=== PATIENT | male | born 1985 | race Caucasian/White ===

== ENCOUNTER 2020-11-13 05:25 | Emergency (ER) | payer SELFPAY ==
[~2020-11-13] VITALS: Ht 193 cm; Wt 90.7 kg
--- NOTE | 2020-11-13 05:25 | NUR ---
PT RACQUEL LOPEZ, PREBOOK. TAKEN TO CHAIR
[2020-11-13 05:28] VITALS: BP 136/88
--- NOTE | 2020-11-13 05:29 | NUR ---
Dr. Benoit examining patient.
[2020-11-13] MEDS ORDERED: POLY10SO OP (05:40)
[2020-11-13 05:43] VITALS: BP 136/88
--- NOTE | 2020-11-13 05:43 | NUR ---
Patient discharged with v/s stable. Written and verbal after care instructions given and explained. Patient alert, oriented and verbalized understanding of instructions. Ambulatory with steady gait. All questions addressed prior to discharge. ID band removed. Patient advised to follow up with PMD. Rx of POLYTRIM EYE DROPS given. Patient educated on indication of medication including possible reaction and side effects. Opportunity to ask questions provided and answered. [facility].
== END 2020-11-13 05:43 ==
LOC: MED 05:25
DX: H10.9 Unspecified conjunctivitis (principal); B96.89 Other specified bacterial agents as the cause of diseases classified elsewhere
CPT/HCPCS: 99283